=== PATIENT | female | born 1955 | race Caucasian/White ===

== ENCOUNTER 2024-12-17 00:59 | Emergency (ER) | payer OTHER ==
[~2024-12-17] VITALS: Ht 170.2 cm; Wt 158.8 kg
--- NOTE | 2024-12-17 02:52 | NUR ---
Callback. Ankita (pt) shortly before this [facility] cash management associate Remington arrived. Pt's spouse Denys and his friend Rory were present in the conult room. Pt's spouse seemed disengaged and is clearly expressing signs of grief. Addressed pt's spouse's support system. Rory is a neighbor and close friend that will likely provide support in the coming days. Provided compassionate listening and normalized spouse's experience and provided education pertaining to grief. Encouraged self care in the form of staying hydrated and maintaining self care. Addressed spiritual connections. Spouse no longer attends voodoo, likely due to transportation barriers. Spouse's main coping mechanism seems to be staying busy. Provided prayer and encouragement. Spouse and his friend verbally expressed gratitude for prayer and visit.
[2024-12-17] MEDS ORDERED: EPINEPhrine HCl 0.1 MG/ML 10ML SYR IV ONE (03:45)
[2024-12-17] MEDS ORDERED: Sodium Bicarb 8.4% 50 mEq Syringe IV ONE (03:45)
== END 2024-12-17 03:55 ==
LOC: EDBD 00:59 → ER 00:59
DX: I46.9 Cardiac arrest, cause unspecified (principal)
CPT/HCPCS: 31500; 92950; 94002; 99285-25